=== PATIENT | male | born 1945 | race Caucasian/White ===

== ENCOUNTER 2023-07-01 12:55 | Emergency (ER) | payer MEDICARE, OTHER ==
[~2023-07-01] VITALS: Ht 188 cm; Wt 77.3 kg
[~2023-07-01 12:55] MED LIST: ASPI-989 PO; CHOL25TA4 PO; LISI-893 PO; TAMS0.4C94 PO; VITA-328 PO
[2023-07-01] MEDS ORDERED: HYDR12.56 PO (13:00)
[2023-07-01] MEDS ORDERED: METO-408 PO (13:00)
[2023-07-01 13:14] VITALS: TEMP 98.9
[2023-07-01] MEDS ORDERED: ACETAMINOPHEN 500 MG TABLET PO ONE (15:00)
[2023-07-01] MEDS ORDERED: OxyCODONE HCL/ACETAMINOPHEN 5-325 MG TABLET PO ONE (19:45)
[2023-07-01 20:10] LABS: BASOPHILS % (AUTO) 0.5 % (0.0-2.0); EOSINOPHILS % (AUTO) 0.2 % (1.0-6.0); HEMATOCRIT 37.3 % (41-53); HEMOGLOBIN 12.4 g/dL (13.5-17.5); LYMPHOCYTES # (AUTO) 1.1 K/uL (1.0-4.8); LYMPHOCYTES % (AUTO) 16.2 % (22.0-44.0); MEAN CORPUSCULAR HEMOGLOBIN 35.5 pg (26.0-34.0); MEAN CORPUSCULAR HGB CONC 33.3 G/dL (31.0-37.0); MEAN CORPUSCULAR VOLUME 107 fL (80-100); MONOCYTES # (AUTO) 0.6 K/uL (0.1-1.0); MONOCYTES % (AUTO) 8.6 % (2.0-9.0); NEUTROPHILS # (AUTO) 5.1 K/uL (1.8-7.7); NEUTROPHILS % (AUTO) 74.5 % (40.0-70.0); PLATELET COUNT (AUTO) 295 K/uL (150-450); RED CELL DISTRIBUTION WIDTH 15.9 % (11.5-14.5); WHITE BLOOD COUNT (AUTO) 6.8 K/uL (4.5-11.0)
[2023-07-01 20:23] LABS: ANION GAP 10 mmol/L (8-16); CALCIUM, TOTAL 9.3 mg/dL (8.8-10.5); CARBON DIOXIDE 26 mmol/L (22-29); CHLORIDE 100 mmol/L (98-107); CREATININE 0.96 mg/dL (0.60-1.30); GLOMERULAR FILTR. RATE CALC > 60 mL/min (>60); GLUCOSE,RANDOM 97 mg/dL (70-110); POTASSIUM 3.5 mmol/L (3.5-5.1); SODIUM SERUM 136 mmol/L (136-145); UREA NITROGEN, BLOOD 11 mg/dL (7-18)
[2023-07-01 20:27] LABS: RBC MORPHOLOGY COMMENT ABNORMAL RBC MORPH
[2023-07-01 20:29] LABS: ALANINE AMINOTRANSFERASE 16 U/L (12-78); ALBUMIN 3.5 g/dL (3.4-5.0); ALKALINE PHOSPHATASE 75 U/L (46-116); ASPARTATE AMINOTRANSFERASE 33 U/L (15-37); BILIRUBIN,TOTAL 0.7 mg/dL (0.1-1.0); TROPONIN I-HIGH SENSITIVITY 8 ng/L (<76)
[2023-07-01 20:31] LABS: CREATINE KINASE, TOTAL ONLY 120 U/L (39-308)
[2023-07-01 20:35] LABS: B-TYPE NATRIURETIC PEPTIDE 62 pg/mL (0-100)
[2023-07-01 21:41] LABS: APPEARANCE,URINE CLEAR (CLEAR); BILIRUBIN,URINE NEGATIVE (NEGATIVE); COLOR,URINE LIGHT YELLOW (YELLOW); GLUCOSE, URINE (UA) NEGATIVE (NEGATIVE); LEUKOCYTE ESTERASE ,URINE NEGATIVE (NEGATIVE); NITRATE,URINE NEGATIVE (NEGATIVE); OCCULT BLOOD,URINE NEGATIVE (NEGATIVE); SPECIFIC GRAVITIY, URINE 1.022 (1.003-1.030); UROBILINOGEN,URINE <=1.0 mg/dL (<=1.0)
[2023-07-01 22:00] LABS: PROTEIN,URINE NEGATIVE (NEGATIVE)
[2023-07-01] MEDS ORDERED: OXYC-43 PO (22:48)
[2023-07-01] MEDS ORDERED: PERCT PO (22:52)
[2023-07-01 22:59] VITALS: BP 123/91; PULSE 78; RESP 18
== END 2023-07-02 00:52 | disposition home or self-care (01) ==
LOC: EMS 13:16
DX: S13.4XXA Sprain of ligaments of cervical spine, initial encounter (principal); M47.812 Spondylosis without myelopathy or radiculopathy, cervical region; L72.3 Sebaceous cyst; I10 Essential (primary) hypertension; Z98.890 Other specified postprocedural states; Z91.013 Allergy to seafood; Z88.8 Allergy status to other drugs, medicaments and biological substances; X58.XXXA Exposure to other specified factors, initial encounter; Y93.89 Activity, other specified; Y92.89 Other specified places as the place of occurrence of the external cause; Y99.8 Other external cause status
CPT/HCPCS: 70360; 72125; 74022; 80053; 81003; 82550; 83880; 84484; 85025; 93005; 99285